=== PATIENT | female | born 1965 | race Caucasian/White ===

== ENCOUNTER 2017-04-09 18:31 | Emergency (ER) | payer OTHER ==
[~2017-04-09] VITALS: Ht 165.1 cm; Wt 79.6 kg
[2017-04-09 18:44] VITALS: Ht 165.1 cm; Wt 79.6 kg
[2017-04-09] MEDS ORDERED: KETOROLAC 60 MG INJ IM STA (21:57)
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
[2017-04-09] MEDS ORDERED: HYDR-906 PO (23:32)
[2017-04-09] MEDS ORDERED: IBUP-1542 PO (23:32)
[2017-04-09] MEDS ORDERED: BACL10TA PO (23:32)
[2017-04-09 23:43] VITALS: BP 123/72; PULSE 68; RESP 18; TEMP 97.8
== END 2017-04-10 00:27 | disposition home or self-care (01) ==
LOC: FTE 18:31
DX: M54.5 Low back pain (principal)
CPT/HCPCS: 72040; 72072; 72100; 96372; J1885; Z7502

== ENCOUNTER 2017-04-26 07:30 | Day surgery (SDC) | payer OTHER ==
[~2017-04-26] VITALS: Ht 157.5 cm; Wt 77.7 kg
[~2017-04-26 07:30] MED LIST: BACL10TA PO; HYDR-906 PO; IBUP-1542 PO
[2017-04-26] MEDS ORDERED: [UNRECOGNIZED DRUG - OTHER] (08:29)
[2017-04-26 08:33] VITALS: Ht 157.5 cm; Wt 77.7 kg
[2017-04-26 08:38] VITALS: BP 113/58; PULSE 58; RESP 12
--- NOTE | 2017-04-26 09:07 | OPPN ---
Date/Time of Note Date/Time of Note DATE: 04/26/17 TIME: 09:04 Proc Note GI Procedure Date 04/26/17 Indication: screening/surveillance Pre-procedure Diagnosis screening colonoscopy Post-procedure Diagnosis diverticulosis hemorrhoids Procedure Performed: Colonoscopy Surgeon see signature line Printmaker none Anesthesia Type: moderate sedation Tourniquet Time none EBL none Transfusion required none Biopsy 1: none Grafts/Implants none Tubes/Drains none Complication(s) none Disposition: home Procedure Description under mod sedation colonoscopy revealed diverticulosis and mini ex hemorrhoids ERICA GREENE MD Apr 26, 2017 09:07
[2017-04-26] MEDS ORDERED: FENTAnyl 50 MCG/ML VIAL ONE (09:09)
[2017-04-26] MEDS ORDERED: MIDAZOLAM 1 MG/ML 2 ML INJ ONE ×2 (09:09)
--- NOTE | 2017-04-27 04:11 | GILP ---
DATE OF PROCEDURE: 04/26/2017 NAME OF PROCEDURE: Colonoscopy. PREOPERATIVE DIAGNOSIS: Patient presenting with history of no significant problems. This is a scre ening colonoscopy to rule out colon polyps. POSTOPERATIVE DIAGNOSES: Diverticulosis and minimal external hemorrhoids. DESCRIPTION OF PROCEDURE: After informed written consent was obtained, the patient was asked to lie on the left lateral side, total of 4 mg Versed and 50 mcg of fentanyl was given as intravenous anes thesia. When the patient became somnolent, the Olympus video colonoscope was introduced into the rectum and scope was advanced all the way to the cecum. Entire colon appeared perfectly normal with no mucosal abnormality. Diverticulosis noted scattered along the colon. No bleeding noted. No cancer noted. Scope at this time was withdrawn. On the way out, retroflexion was performed. No internal hemorr hoids were noted, but when the scope was withdrawn external hemorrhoids were noted and the procedure was terminated. PLAN: Recommend repeat colonoscopy in 10 years. Dictated By: ERICA TUCKER/AFSANEH Conf#: [id number] DID#: [id number] CC: Brandi LONG;*EndCC*
== END 2017-04-26 10:52 | disposition home or self-care (01) ==
LOC: GIL 07:30 → MERGE 08:30 → GIL 10:52
PROVIDERS: ATTEND Internal Medicine Gastroenterology
DX: Z12.11 Encounter for screening for malignant neoplasm of colon (principal); K57.90 Diverticulosis of intestine, part unspecified, without perforation or abscess without bleeding; K64.4 Residual hemorrhoidal skin tags
CPT/HCPCS: 45378; J2250; J3010; Z7610